=== PATIENT | female | born 1975 | race Caucasian/White ===

== ENCOUNTER → 2020-03-02 17:28 | Outpatient (CLI) | payer BC, SELFPAY ==
[2020-03-02 18:46] LABS: Alanine Aminotransferase 10 U/L (12-78); Albumin Level 3.7 g/dl (3.5-5.0); Albumin/Globulin Ratio 1.5 (1.1-1.8); Alkaline Phosphatase 48 U/L (38-126); Anion Gap 11.4 mEq/L (5-15); Aspartate Amino Transferase 21 U/L (14-36); Bilirubin,Total 0.4 mg/dl (0.2-1.3); Blood Urea Nitrogen 8 mg/dl (7-17); Carbon Dioxide 25 mmol/L (22.0-30.0); Chloride 106 mmol/L (98-107); Chol/HDL Ratio 3.2 (1-3.5); Cholesterol 161 mg/dl (140-200); Estimated Glomerular Filt Rate 134 ml/min (>60); GFR (African American) 162 ML/MIN (>60); Globulin 2.4 g/dL (1.3-3.2); Glucose 99 mg/dl (74-100); HDL Cholesterol 50 mg/dl (40-60); Potassium 4.4 mmoL/L (3.5-5.1); Sodium 138 mmol/L (136-145); Total Protein,Serum 6.1 g/dl (6.3-8.2); Triglycerides 89 mg/dl (30-150); VLDL Cholesterol 18 mg/dL (0-40)
[2020-03-02 18:57] LABS: Direct LDL Cholesterol 99.16 mg/dL (100-129)
[2020-03-02 19:04] LABS: 25-OH Vitamin D, Total 70.1 ng/mL (30-100)
[2020-03-02 19:05] LABS: T4 (Thyroxine) 8.6 ug/dl (5.53-11.0)
[2020-03-02 19:18] LABS: Thyroid Stimulating Hormone 0.88 uIU/mL (0.465-4.68)
== END ==
PROVIDERS: Visit Provider Physician Assistant
DX: R42 Dizziness and giddiness (principal)
CPT/HCPCS: 80053; 80061; 82306; 84436; 84443

== ENCOUNTER → 2020-03-03 17:32 | Outpatient (CLI) | payer BC, SELFPAY ==
[2020-03-03 18:38] LABS: Basophils # 0.1 K/mm3 (0-0.2); Basophils % 0.8 % (0.1-2.0); Eosinophils # 0.2 K/mm3 (0.0-0.4); Eosinophils % 2.2 % (0.1-12.0); Hematocrit 37.6 % (37.0-47.0); Hemoglobin 12.2 g/dL (12.2-16.2); Lymphocytes # 2.1 K/mm3 (0.7-4.5); Lymphocytes % 26.9 % (10-50); Mean Corpuscular HGB Conc 32.6 g/dL (31.8-35.4); Mean Corpuscular Hemoglobin 27.8 pg (27.0-31.2); Mean Corpuscular Volume 85.3 fl (81-99); Monocytes # 0.5 K/mm3 (0.1-1.0); Monocytes % 5.9 % (1.7-9.3); Neutrophils # 5.1 K/mm3 (1.8-7.8); Neutrophils % 64.3 % (37.0-80.0); Platelet Count 259 K/mm3 (142-424); Red Blood Count 4.41 M/mm3 (4.20-5.40); Red Cell Distribution Width 13.5 % (11.5-17.5); White Blood Count 7.9 K/mm3 (4.8-10.8)
== END ==
PROVIDERS: Visit Provider Physician Assistant
DX: R42 Dizziness and giddiness (principal)
CPT/HCPCS: 85025

== ENCOUNTER 2024-05-13 14:36 | Outpatient (CLI) | payer BC, SELFPAY ==
--- NOTE | 2024-05-13 14:38 | MM_ITS ---
PROCEDURE INFORMATION: Exam: MG Bilateral Screening 3D Mammography Exam date and time: 05/13/2024 2:35 PM Age: 49 years old Clinical indication: Screening examination TECHNIQUE: Imaging protocol: Bilateral Screening tomosynthesis and 2D mammography including computer-aided detection (CAD) when performed. COMPARISON: No relevant prior studies available. FINDINGS: MAMMOGRAPHY: Breast composition: The breasts are heterogeneously dense, which may obscure small masses. Mass: 0.8 cm ovoid mass in the posterior left upper inner quadrant. Questionable additional 0.7 cm ovoid mass in the posterior left upper outer quadrant Architectural distortion: None. Calcifications: No suspicious calcifications. Asymmetric density: None. Skin thickening: None. Axillary adenopathy: None. IMPRESSION: Patient to be recalled for spot compression views of the left breast in the CC and MLO projections, a full 90 degree lateral view, and left breast ultrasound for further evaluation of two left breast masses. ASSESSMENT: BI-RADS Category 0: Incomplete- Need Additional Imaging Evaluation
== END 2024-05-13 23:59 | disposition home or self-care (01) ==
LOC: RAD 14:36
PROVIDERS: PCP Physician Assistant; Visit Provider Physician Assistant
DX: Z12.31 Encounter for screening mammogram for malignant neoplasm of breast (principal)
CPT/HCPCS: 77063; 77067

== ENCOUNTER 2024-05-28 09:48 | Outpatient (CLI) | payer BC, SELFPAY | END 2024-05-28 23:59 | disposition home or self-care (01) | LOC: LAB.DROPOF 05-29 10:53 | PROVIDERS: PCP Student in an Organized Health Care Education/Training Program; Visit Provider Student in an Organized Health Care Education/Training Program | DX: R21 Rash and other nonspecific skin eruption (principal) | CPT/HCPCS: 87070 ==

== ENCOUNTER 2024-06-14 09:44 | Outpatient (CLI) | payer BC, SELFPAY ==
--- NOTE | 2024-06-14 09:52 | MM_ITS ---
PROCEDURE INFORMATION: Exam: US Left Breast, Complete MG Left Diagnostic Breast Tomosynthesis Exam date and time: 06/14/2024 9:58 AM Age: 49 years old Clinical indication: Recall on the basis of screening mammogram 05/13/2024 for further evaluation of 0.8 cm ovoid mass in the posterior left upper inner quadrant and questionable additional 0.7 cm ovoid mass in the posterior left upper outer quadrant . TECHNIQUE: Imaging protocol: Complete ultrasound of all four quadrants of the left breast and the retroareolar regions, including ultrasound of the axilla when performed. Left Diagnostic tomosynthesis and 2D mammography including computer-aided detection (CAD) when performed. Unilateral or bilateral exam. COMPARISON: US BREAST LT COMPLETE 06/14/2024 9:58 AM FINDINGS: MAMMOGRAPHY: Breast composition: The breast is heterogeneously dense, which may obscure small masses based on the most recent screening mammogram report. Breast mammogram findings: Spot compression shows a persistent 0.8 cm mass in the upper inner quadrant posterior 3rd. No additional masses persist on spot compression. ULTRASOUND: Breast ultrasound findings: Left sonography, all 4 quadrants, retroareolar and axilla. At 1 o'clock 7 cm from the nipple, oval hypoechoic avascular mass measuring 0.40.4 x 0.3 cm. At 1 o'clock 5 cm from the nipple, oval hypoechoic avascular mass with possible gentle lobulation measuring 0.5 x 0.4 x 0.5 cm. At 3 o'clock 4 cm from the nipple, oval hypoechoic avascular mass with gentle lobulations measuring 0.5 x 0.5 x 0.2 cm. At 8 o'clock 7 cm from the nipple, hypoechoic mass with avascular septations measuring 0 7 x 0.8 x 0.4 cm at 11 o'clock 3 cm from the nipple, oval hypoechoic mass with thin avascular septation measuring 0.6 x 0 3 x 0.6 cm. At 12 o'clock 3 cm from nipple, oval hypoechoic mass with homogeneous low-level avascular internal echoes measuring 0.6 x 0.5 x 0.9 cm. Minimally dilated retroareolar ducts with no related debris. Sonographically unremarkable axillary lymph node. IMPRESSION: Screening detected questionable masses - one of which persists on diagnostic imaging with multiple probably benign sonographic masses, probably complicated cysts (mammographic mass may correspond to the 8 o'clock sonographic mass). Suggest six-month follow-up left diagnostic mammogram and left sonogram unless otherwise clinically indicated. ASSESSMENT: BI-RADS Category 3: Probably benign.
== END 2024-06-14 23:59 | disposition home or self-care (01) ==
LOC: RAD 09:46
PROVIDERS: PCP Physician Assistant; Visit Provider Physician Assistant
DX: N63.22 Unspecified lump in the left breast, upper inner quadrant (principal)
CPT/HCPCS: 76641; 77061; 77065; G0279

== ENCOUNTER 2024-12-25 14:13 | Outpatient (CLI) | payer BC, SELFPAY ==
--- OUTSIDE RECORDS SUMMARY | 2024-12-25 14:15 | XMS_ITS | Clinical Summary ---
Author Organization [facility] Address 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 Name Role Phone Celso Mcgrath MD Primary Care Provider [phone] Social History Tobacco Use Types Packs/Day Years Used Date Smoking Tobacco: Never Assessed Comments Unknown Sex and Gender Information Value Date Recorded Sex Assigned at Not on file Legal Sex Female 9:10 AM EDT Gender Identity Not on file Sexual Orientation Not on file Plan of Treatment Health Maintenance Due Date Last Done Comments Annual Wellness Exam 1978 DTaP/TDaP/Td (1 - Tdap) 1994 Hepatitis B Vaccine (1 of 3 - 19+ 3-dose series) 1994 Cervical Cancer Screening 1996 Pap Smear 1996 HPV/Pap Cotest 2005 Breast Cancer Screening 02/25/2018 02/26/2016 Cologuard 2020 Colon Cancer Screening 2020 Colonoscopy 2020 FIT 2020 Sigmoidoscopy 2020 Virtual Colonography 2020 COVID-19 Vaccine (2023-2 5 season) 2024 Influenza Vaccine (#1) 2025 Meningococcal B Vaccine Aged Out No l onger eligible based on patient's age to complete this topic Pneumococcal Vaccine 0-49 Aged Out No longer eligible based on patient's age to complete this topic Procedures Procedure Name Priority Date/Time Associated Diagnosis Comments MM MOBILE MAMMO DIGITAL SCREEN W CAD DIVYA Routine 02/26/2016 10:35 AM EDT Visit for screening mammogram from Last 3 Months or Most Recently Relevant to Health Maintenance Results * MM MOBILE MAMMO DIGITAL SCREEN W CAD DIVYA (02/26/2016 10:35 AM EDT) Anatomical Region Laterality Modality Breast Mammography 02/29/2016 10:5 5 AM EDT Impressions 02/29/2016 4:14 PM EDT Incomplete-need additional imaging evaluation ([id number]) ~ RECOMMENDATION: Ultrasound and special view mammogram of the left breast. Tomosynthesis to be obtained. ~ * The patient with a palpable abnormality, unexplained by breast imaging, should be managed on clinical basis by the attending physician. * Breast imaging has a false negative rate of 15%. * The patient was notified by mail of the results of this examination. *The patient's information was entered into a reminder system with a target due date for the next mammogram. The mammogram was reviewed by a Radiologist and CAD. Narrative 02/29/2016 4:14 PM EDT Procedure:MM MOBILE MAMMO DIGITAL SCREEN W CAD DIVYA ~ Reason for exam: screening (asymptomatic). ~ MM MOBILE MAMMO DIGITAL SCREEN W CAD DIVYA Bilateral CC and MLO view(s) were taken. The breast tissue is heterogeneously dense. This may lower the sensitivity of mammography. There are multiple benign-appearing oval masses in the left breast. Mammogram of the contralateral breast reveals no evidence of malignancy. No suspicious calcifications. No previous studies for comparison. ~ Celso Mcgrath MD IMG MAMMOGRAPHY ORDERABLES Marta l Result from Last 3 Months or Most Recently Relevant to Health [place] [address] Care Teams Hardwood Faller Relationship Specialty Start Date End Date Celso Mcgrath MD [address] [place] [address] PCP - General Family Medicine 02/26/16
--- NOTE | 2024-12-25 14:16 | MM_ITS ---
PROCEDURE INFORMATION: Exam: US Left Breast, Complete MG Left Diagnostic Breast Tomosynthesis MG Left Diagnostic Mammography Exam date and time: 12/25/2024 2:09 PM Age: 49 years old Clinical indication: Short-term radiographic followup; Left breast; masses TECHNIQUE: Imaging protocol: Complete ultrasound of all four quadrants of the left breast and the retroareolar regions, including ultrasound of the axilla when performed. Left Diagnostic tomosynthesis and 2D mammography including computer-aided detection (CAD) when performed. Unilateral or bilateral exam. Left Diagnostic mammography including computer-aided detection (CAD) when performed. Unilateral exam. COMPARISON: US BREAST LT COMPLETE 06/14/2024 9:58 AM FINDINGS: MAMMOGRAPHY: Breast composition: The breasts are heterogeneously dense, which may obscure small masses. Breast mammogram findings: There is no stellate mass, architectural distortion or suspicious microcalcifications to suggest malignancy. No skin thickening or axillary adenopathy. Stable nonspecific nodular parenchymal pattern on routine and spot compression views. ULTRASOUND: Breast ultrasound findings: Sonographic images of the left 12 o'clock axis 3 cm from the nipple demonstrates a stable hypoechoic mass measuring 0.8 x 0.9 x 0.9 cm. 0.3 cm 1 o'clock axis cyst 6 cm from the nipple. Additional clustered subcentimeter cysts in the left 4 in o'clock axis 6 cm from the nipple. 0.8 cm cyst in the left 4 o'clock axis 6 cm from the nipple. Cursors were place over normal subcutaneous fat in the left 4 o'clock axis 1 cm from the nipple. 0.9 cm cyst in the left 8 o'clock axis 7 cm from the nipple. The cystic change on sonography most closely correlates with the nonspecific nodular parenchymal pattern on mammography. IMPRESSION: Stable left 12 o'clock axis probably benign subcentimeter mass compared to prior sonogram dated 06/14/2024. A six-month follow-up targeted left breast ultrasound is recommended to ensure ongoing stability. Annual bilateral mammographic screening is also recommended at that time ASSESSMENT: BI-RADS Category 3: Probably benign.
== END 2024-12-25 23:59 | disposition home or self-care (01) ==
LOC: RAD 14:13
PROVIDERS: PCP Physician Assistant; Visit Provider Physician Assistant
DX: N63.25 Unspecified lump in the left breast, overlapping quadrants (principal); N63.21 Unspecified lump in the left breast, upper outer quadrant; N63.23 Unspecified lump in the left breast, lower outer quadrant; N63.24 Unspecified lump in the left breast, lower inner quadrant; R92.332 Mammographic heterogeneous density, left breast
CPT/HCPCS: 76641; 77061; 77065; G0279